=== PATIENT | male | born 1965 | race Caucasian/White ===

== ENCOUNTER → 2016-05-14 | Outpatient (CLI) | payer OTHER ==
--- NOTE | 2016-05-14 15:57 | US ---
Bilateral Duplex/Doppler Carotid Sonography Clinical Indications: Neck pain. M 54.2 Technique: The cervical portions of the carotid and vertebral arteries were imaged and interrogated by color and pulsed Duplex/Doppler. Spectral analysis was performed. Findings: Right Carotid: Right CCA peak systolic velocity = 96 cm/sec Right ICA peak systolic velocity = 79 cm/sec Right ECA peak systolic velocity = 78 cm/sec Right ICA/CCA systolic velocity ratio = 0.8 No atherosclerotic disease or flow-limiting stenosis of the carotid bifurcations. Left Carotid: Left CCA peak systolic velocity = 85 cm/sec Left ICA peak systolic velocity = 89 cm/sec Left ECA peak systolic velocity = 81 cm/sec Left ICA/CCA systolic velocity ratio = 1.05 No flow-limiting carotid stenosis. Minimal calcified plaque involving the left carotid bulb and proxi mal left internal carotid artery. Vertebral Arteries: Antegrade flow is shown by pulsed Doppler of each vertebral artery. Impression: 1. No evidence of flow-limiting carotid stenosis. 2. Minimal atherosclerotic disease left carotid bulb. 3. No significant atherosclerotic disease right carotid bulb. 4. Bilateral vertebral arteries are patent with antegrade flow. Measurement of carotid stenosis is based on velocity parameters that correlate the residual internal carotid diameter with [place] Symptomatic Carotid Endarterectomy Trial (NASCET) based stenosis levels.
== END ==
LOC: BMCIMAGING 13:09
PROVIDERS: ATTEND Internal Medicine
DX: M54.2 Cervicalgia (principal); Z82.49 Family history of ischemic heart disease and other diseases of the circulatory system

== ENCOUNTER → 2016-10-27 | Outpatient (CLI) | payer OTHER | LOC: BMCIMAGING 15:03 | PROVIDERS: ATTEND Nurse Practitioner Adult Health | DX: M25.532 Pain in left wrist (principal); X50.0XXA Overexertion from strenuous movement or load, initial encounter ==